=== PATIENT | female | born 1975 | race African-American/Black ===

== ENCOUNTER 2016-04-26 09:57 | Day surgery (SDC) | payer OTHER ==
[2016-04-23 14:56] VITALS: BMI 25.8
[~2016-04-26 09:57] MED LIST: LACTATED RINGERS 1,000 ML IV SCH; LIDOCAINE 1% 20 ML VIAL (10MG/ML) FOR IV START INTRADERMA PRN
[2016-04-26 10:26] VITALS: RESP 16
--- NOTE | 2016-04-26 10:36 | P.OP ---
Date of Procedure: 04/26/16 Preoperative Diagnosis: Change in bowel habits, intermittent rectal bleeding, abdominal cramps Anxiety, Depression Hypertension Postoperative Diagnosis: Normal colonoscopy Procedure(s) Performed: Colonoscopy with random biopsy Implants: NA Anesthesia: MAC (ASA 2) Surgeon: Jossie Kay Condition: stable Disposition: PACU Indications for Procedure: 40 yrs old female known patient, presents with intermittent rectal bleed, change in bowel habits with abdominal cramps and bloating. She also has pelvic pain during intercourse. Prior diagnostic laparoscopy for endometriosis and inguinal hernia repair at the same time with tubal ligation by her [employer]. She felt her stitches pop on the left side. Informed consent obtained from the patient after explaining the risks, benefits and potential complications and she elected to undergo colonoscopy with possible biopsy. Operative Findings: Normal colonoscopy Description of Procedure: The patient was brought to the endoscopy suite and placed in lateral decubitus position. IV sedation was given as per anesthesia team. Patient was on continuous vitals and pulse oximetry monitoring throughout the procedure. A timeout was performed to verify correct patient and correct procedure. Perianal examination did not show any external hemorrhoids. Digital rectal examination was performed. No masses or gross blood. A well-lubricated Olympus colonoscope was passed per rectally and was gradually advanced beyond the sigmoid colon, splenic flexure, transverse colon, hepatic flexure and cecum. The ileocecal valve was visualized. The colonoscope was gradually withdrawn inspecting all the mucosal surfaces. Bowel prep was good. No polyps, masses, AV malformations noted. No diverticulosis. Random colon biopsy taken using cold bx forceps. The scope was gradually withdrawn and retroflexed in the rectum . Grade 1 internal hemorrhoids seen. Total withdrawal time was greater than 6 minutes . Patient tolerated the procedure well and was taken to post anesthesia care unit in stable condition. Recommend repeat colonoscopy in 10 years . Final Pathologic Diagnosis COLONIC MUCOSA, RANDOM COLON (ENDOSCOPIC BIOPSY): NO SIGNIFICANT DIAGNOSTIC ALTERATIONS.
[2016-04-26] MEDS ORDERED: PROPOFOL 10 MG/ML 20 ML VIAL IV ONE (10:40)
[2016-04-26] MEDS ORDERED: LIDOCAINE 1% INJ 10MG/ML (20 ML MDV) ONE (10:40)
[2016-04-26 11:18] VITALS: PULSE 72
[2016-04-26 11:41] VITALS: BP 136/84
== END 2016-04-26 12:06 | disposition home or self-care (01) ==
LOC: ORWHC2ENDO 09:57
PROVIDERS: ATTEND Surgery
DX: K64.0 First degree hemorrhoids (principal); R19.4 Change in bowel habit; R10.9 Unspecified abdominal pain; I10 Essential (primary) hypertension; Z79.1 Long term (current) use of non-steroidal anti-inflammatories (NSAID); Z79.891 Long term (current) use of opiate analgesic; Z79.52 Long term (current) use of systemic steroids; Z79.899 Other long term (current) drug therapy; Z88.1 Allergy status to other antibiotic agents
CPT/HCPCS: 81025; 88305; 45380; J2001; J2704

== ENCOUNTER 2016-08-07 14:00 | Emergency (ER) | payer OTHER ==
[2016-08-07] MEDS ORDERED: SODIUM CHLORIDE 0.9% 500 ML IV STA (14:40)
--- NOTE | 2016-08-07 14:44 | ED ---
General Adult HPI - General Chief complaint: Back Pain/Injury Stated complaint: kidney and heart "achy" Time Seen by Provider: 08/07/16 14:27 Source: patient, RN notes reviewed, old records reviewed Mode of arrival: ambulatory Limitations: no limitations - History of Present Illness Initial comments: Chief complaint and history of present illness a 40-year-old female here with a complaint that started 1 week ago. When she had nausea vomiting last the day and a half. She developed a tension type headache that lasted for several days. Also muscle aches and pains. Pushing on her chest at that time increased discomfort as needed deep breathing. Also some low back discomfort. She also had some frequency and urgency. No dysuria. Denies fever during this time. Been out of work for several days. Denies anyone else being sick with similar symptoms 100 friends or family. - Related Data Home Medications Medication Instructions Recorded Confirmed buPROPion XL [Wellbutrin Xl] 300 mg PO DAILY 08/31/15 08/07/16 traZODone HCL [Desyrel] 100 mg PO HS 08/31/15 08/07/16 Ferrous Sulfate [Feosol] 325 mg PO DAILY 12/07/15 08/07/16 Metoprolol Tartrate 25 mg PO BID 12/07/15 08/07/16 ALPRAZolam [Xanax] 0.25 mg PO BID PRN 08/07/16 08/07/16 Ergocalciferol [Vitamin D2] 50,000 unit PO WE 08/07/16 08/07/16 Loratadine [Claritin] 10 mg PO DAILY 08/07/16 08/07/16 Previous Rx's Medication Instructions Recorded Ibuprofen [Motrin] 600 mg PO Q6HR PRN #20 tab 08/07/16 Ondansetron Odt [Zofran Odt] 4 mg PO Q8HR PRN #10 tab 08/07/16 Allergies Allergy/AdvReac Type Severity Reaction Status Date / Time vancomycin Allergy Rash/Hives Verified 08/07/16 14:45 Review of Systems ROS Statement: Those systems with pertinent positive or pertinent negative responses have been documented in the HPI. Review of systems. Currently in minimal no headache no visual acuity changes no discomfort to the chest or muscles except for the low back. Denies rashes. No nausea no vomiting. Bowel movements every other day no diarrhea. No neuro deficits. All systems are reviewed. Past medical problems significant for hypertension for which she is on metoprolol. She had a hemorrhoid which was investigated by colonoscopy. Ovarian cysts and endometriosis. Surgeries include hernia repair. Abscess I&D right groin. Tubal ligation. Uterine laparoscopic exam. And foot surgery. Family history noncontributory. ALLERGIES to vancomycin. Nonsmoker, occasional alcohol use. ROS Other: All systems not noted in ROS Statement are negative. Past Medical History Past Medical History: GI Bleed, Hypertension Additional Past Medical History / Comment(s): ovarian cyst, endometerosis, anemic, chronic bronchitis, changes in bowel habits, 2 hernias in groin History of Any Multi-Drug Resistant Organisms: None Reported Past Surgical History: Hernia Repair, Tubal Ligation Additional Past Surgical History / Comment(s): uterine lap, foot sx 2006, I&D abscess Past Anesthesia/Blood Transfusion Reactions: No Reported Reaction Past Psychological History: Anxiety, Depression, PTSD Smoking Status: Never smoker Past Alcohol Use History: None Reported Past Drug Use History: None Reported - Past Family History Father Additional Family Medical History / Comment(s): no known issues, committed suicide General Exam - General Exam Comments Initial Comments: General: The patient is awake and alert, complains of more discomfort several days ago and that she's having today. Generalized aches and pains. Afebrile. Vital signs shows temperature 98.8 pulse 87 respiratory rate 20 pulse ox 99% room air blood pressure 120/74 Eye: Pupils are equal, round and reactive to light, extra-ocular movements are intact ; there is normal conjunctiva bilaterally. No signs of icterus. Ears, nose, mouth and throat: There are moist mucous membranes and no oral lesions. Neck: The neck is supple, there is no tenderness , no anterior cervical lymphadenopathy, thyroid not enlarged. Cardiovascular: There is a regular rate and rhythm. No murmur, rub or gallop is appreciated. Respiratory: Lungs are clear to auscultation, respirations are non-labored, breath sounds are equal. No wheezes, stridor, rales, or rhonchi. Gastrointestinal: Soft, non-distended, non-tender abdomen without masses or organomegaly noted. There is no rebound or guarding present. No CVA tenderness. Bowel sounds are unremarkable. Back: Mild low back discomfort. Range of motion is near normal. Musculoskeletal: Normal ROM, no tenderness, There is no pedal edema. There is no calf tenderness or swelling. Sensation intact. Pulses equal bilaterally 2+. Generalized aches and pains. Neurological: CN II-XII intact, There are no obvious motor or sensory deficits. Coordination appears grossly intact. Speech is normal. No neuro deficits. Skin: Skin is warm and dry and no rashes or lesions are noted. Limitations: no limitations Course Vital Signs 08/07/16 14:15 Temperature 98.8 F Pulse Rate 87 Respiratory 20 Rate Blood Pressure 120/74 O2 Sat by Pulse 99 Oximetry Medical Decision Making - Medical Decision Making Medical decision making patient's white count is 4 hemoglobin 11 hematocrit 39 , urine clean no signs of infection. Potassium 4.6 with a BUN 15 creatinine 1.0G for greater than 60. C-reactive protein less than 5 Chest x-ray is done both AP and lateral view and reviewed by radiologist. His final impression is no acute cardiopulmonary process no significant change from prior. As read by Dr. berger The patient will be placed on ibuprofen 600 mg 1 every 6 hours for the next 4 days for muscle aches and pains. Told to increase her fluids. She'll be a prescription for Zofran ODT. Advised to follow-up with family physician. Off work today and tomorrow. - Lab Data Result diagrams: 08/07/16 15:10 08/07/16 15:10 Lab Results 08/07/16 08/07/16 08/07/16 Range/Units 14:10 15:10 15:10 WBC 4.5 (3.8-10.6) k/uL RBC 5.57 H (3.80-5.40) m/uL Hgb 11.3 L (11.4-16.0) gm/dL Hct 39.0 (34.0-46.0) % MCV 70.1 L (80.0-100.0) fL MCH 20.3 L (25.0-35.0) pg MCHC 29.0 L (31.0-37.0) g/dL RDW 16.2 H (11.5-15.5) % Plt Count 179 (150-450) k/uL Neutrophils % 57 % Lymphocytes % 29 % Monocytes % 6 % Eosinophils % 3 % Basophils % 1 % Neutrophils # 2.6 (1.3-7.7) k/uL Lymphocytes # 1.3 (1.0-4.8) k/uL Monocytes # 0.3 (0-1.0) k/uL Eosinophils # 0.1 (0-0.7) k/uL Basophils # 0.0 (0-0.2) k/uL Hypochromasia Marked Anisocytosis Slight Microcytosis Moderate Sodium 137 (137-145) mmol/L Potassium 4.6 (3.5-5.1) mmol/L Chloride 104 (98-107) mmol/L Carbon Dioxide 25 (22-30) mmol/L Anion Gap 8 mmol/L BUN 15 (7-17) mg/dL Creatinine 1.00 (0.52-1.04) mg/dL Est GFR (MDRD) Af Amer >60 (>60 ml/min/1.73 sqM) Est GFR (MDRD) Non-Af >60 (>60 ml/min/1.73 sqM) Glucose 86 (74-99) mg/dL Calcium 9.6 (8.4-10.2) mg/dL Total Bilirubin 0.3 (0.2-1.3) mg/dL AST 19 (14-36) U/L ALT 26 (9-52) U/L Alkaline Phosphatase 60 (38-126) U/L C-Reactive Protein <5.0 (<10.0) mg/L Total Protein 6.9 (6.3-8.2) g/dL Albumin 4.0 (3.5-5.0) g/dL Urine Color Yellow Urine Appearance Clear (Clear) Urine pH 5.5 (5.0-8.0) Ur Specific [place] 1.026 (1.001-1.035) Urine Protein Trace H (Negative) Urine Glucose (UA) Negative (Negative) Urine Ketones Negative (Negative) Urine Blood Negative (Negative) Urine Nitrite Negative (Negative) Urine Bilirubin Negative (Negative) Urine Urobilinogen <2.0 (<2.0) mg/dL Ur Leukocyte Esterase Trace H (Negative) Urine WBC 2 (0-5) /hpf Ur Squamous Epith Cells 6 H (0-4) /hpf Urine Bacteria Rare H (None) /hpf Urine Mucus Many H (None) /hpf Disposition Clinical Impression: Acute viral syndrome, Degeneration of intervertebral disc Disposition: HOME SELF-CARE Condition: Fair Instructions: Viral Syndrome (ED) Additional Instructions: Increase fluids. No milk products. Use Zofran to control nausea ibuprofen to control discomfort. Follow-up with your family physician. Prescriptions: Ibuprofen [Motrin] 600 mg PO Q6HR PRN #20 tab PRN Reason: Pain Ondansetron Odt [Zofran Odt] 4 mg PO Q8HR PRN #10 tab PRN Reason: Nausea Referrals: Slime Rizzo MD [Primary Care Provider] - 1-2 days Time of Disposition: 16:49
[2016-08-07 15:10] LABS: Appearance,Urine Clear (Clear); Bacteria,Urine Rare /hpf; Bilirubin,Urine Negative (Negative); Glucose,Urine (UA) Negative (Negative); Ketones,Urine Negative (Negative); Leukocyte Esterase,Urine Trace (Negative); Mucus,Urine Many /hpf; Nitrite,Urine Negative (Negative); PH, Urine 5.5 (5.0-8.0); Particle Count 9252; Protein,Urine Trace (Negative); Specific Gravity,Urine 1.026 (1.001-1.035); Squamous Epithelial Cell,Urine 6 /hpf (0-4); UA Billing (MACRO vs. MICRO) MICRO; Urobilinogen,Urine <2.0 mg/dL (<2.0); WBC,Urine 2 /hpf (0-5)
[2016-08-07 15:21] LABS: Anisocytosis Slight; Basophils % (A) 1 %; CH 20.5; CHCM 29.5; Eosinophils # (A) 0.1 k/uL (0-0.7); Eosinophils % (A) 3 %; HDW 2.79; HGB 11.3 gm/dL (11.4-16.0); Hypochromasia Marked; Luc # (Auto) 0.15; Luc % (Auto) 4; Lymphocytes # (A) 1.3 k/uL (1.0-4.8); Lymphocytes % (A) 29 %; MCH 20.3 pg (25.0-35.0); MCV 70.1 fL (80.0-100.0); Mean Platelet Volume 6.4; Microcytosis Moderate; Monocytes # (A) 0.3 k/uL (0-1.0); Monocytes % (A) 6 %; Neutrophils # (A) 2.6 k/uL (1.3-7.7); Neutrophils % (A) 57 %; RBC 5.57 m/uL (3.80-5.40); RDW 16.2 % (11.5-15.5); WBC 4.5 k/uL (3.8-10.6); WBC (Perox) 5.11
[2016-08-07 15:42] LABS: ALT 26 U/L (9-52); AST 19 U/L (14-36); Alkaline Phosphatase 60 U/L (38-126); Anion Gap 8 mmol/L; Blood Urea Nitrogen 15 mg/dL (7-17); C Reactive Protein <5.0 mg/L (<10.0); Calcium 9.6 mg/dL (8.4-10.2); Carbon Dioxide 25 mmol/L (22-30); Chloride 104 mmol/L (98-107); Glucose 86 mg/dL (74-99); Non-African American GFR(MDRD) >60 (>60 ml/min/1.73 sqM); Potassium 4.6 mmol/L (3.5-5.1); Sodium 137 mmol/L (137-145); Total Bilirubin 0.3 mg/dL (0.2-1.3); Total Protein 6.9 g/dL (6.3-8.2)
--- NOTE | 2016-08-07 16:35 | XR ---
EXAMINATION TYPE: XR chest 2V DATE OF EXAM: 08/07/2016 COMPARISON: Chest x-ray August 31, 2015. HISTORY: Chest pain. TECHNIQUE: Frontal and lateral views of the chest are obtained. FINDINGS: There is no focal air space opacity, pleural effusion, or pneumothorax seen. The cardiac silhouette size is within normal limits. The osseous structures are intact. IMPRESSION: No acute cardiopulmonary process. No significant change from prior.
[2016-08-07 17:05] VITALS: BP 117/81; PULSE 78; RESP 18; TEMP 98.4
== END 2016-08-07 17:05 | disposition home or self-care (01) ==
LOC: EC 14:00
DX: M51.36 Other intervertebral disc degeneration, lumbar region (principal); B34.9 Viral infection, unspecified; R11.2 Nausea with vomiting, unspecified; R07.2 Precordial pain; I10 Essential (primary) hypertension; F41.9 Anxiety disorder, unspecified; F32.9 Major depressive disorder, single episode, unspecified; F43.10 Post-traumatic stress disorder, unspecified; Z79.899 Other long term (current) drug therapy; Z88.1 Allergy status to other antibiotic agents
CPT/HCPCS: 36415; 71020; 80053; 81001; 85025; 86140; 87086; 96360; 99284

== ENCOUNTER 2017-08-22 15:26 | Emergency (ER) | payer OTHER ==
[2017-08-22] MEDS ORDERED: IBUPROFEN 600 MG TAB PO STA (18:34)
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
--- NOTE | 2017-08-22 19:38 | XR ---
EXAMINATION TYPE: XR finger LT DATE OF EXAM: 08/22/2017 COMPARISON: NONE HISTORY: Index finger pain TECHNIQUE: 3 views FINDINGS: I see no fracture nor dislocation. Joint spaces are normal. IMPRESSION: Negative left index finger exam.
[2017-08-22 21:41] VITALS: BP 116/88; PULSE 76; RESP 16; TEMP 97.9
== END 2017-08-22 21:44 | disposition home or self-care (01) ==
LOC: EC 15:26
DX: S70.12XA Contusion of left thigh, initial encounter (principal); S80.02XA Contusion of left knee, initial encounter; S40.022A Contusion of left upper arm, initial encounter; S61.211A Laceration without foreign body of left index finger without damage to nail, initial encounter; I10 Essential (primary) hypertension; F41.9 Anxiety disorder, unspecified; F32.9 Major depressive disorder, single episode, unspecified; F43.10 Post-traumatic stress disorder, unspecified; Z79.899 Other long term (current) drug therapy; Z88.1 Allergy status to other antibiotic agents; Y04.2XXA Assault by strike against or bumped into by another person, initial encounter
CPT/HCPCS: 99283

== ENCOUNTER 2018-07-19 21:56 | Emergency (ER) | payer OTHER ==
[2018-07-19 22:09] VITALS: RESP 18; TEMP 97.9
[2018-07-19] MEDS ORDERED: MORPHINE SULFATE 4 MG/ML SYRINGE IV STA ×2 (22:36→23:49)
[2018-07-19] MEDS ORDERED: DICYCLOMINE 20 MG TAB PO STA (22:37)
--- NOTE | 2018-07-19 22:48 | ED ---
Abdominal Pain HPI - General Chief Complaint: Abdominal Pain Stated Complaint: Abd Pain Time Seen by Provider: 07/19/18 22:12 Source: patient, EMS - History of Present Illness Initial Comments: This patient is a 42-year-old woman who presents with left lower quadrant and suprapubic pain. She states she believes she is severely constipated. She is not aware of the date of her last bowel movement, stating that she believes it was a couple of days before she had her procedure. She states that on 07/17, she underwent an embolization procedure for a uterine fibroid at [facility] in the [place]. She states that since that time she had been taking some hydrocodone. She is concerned that she may be having some constipation relating to the opioid use. She has also had some associated nausea. She describes pain as now constant, severe, and a crampy feeling associated with a sensation that she has to have a bowel movement. The patient states that it had started earlier in the day and was mild to moderate, becoming severe tonight. She denies any other symptoms. No fever or chills. No chest pain, dyspnea, coughing. No palpitations, lightheadedness, syncope. No leg symptoms. No change in urination. She has had just a little bit of vaginal spotting. MD Complaint: abdominal pain -: hour(s) Location: LLQ, suprapubic Radiation: none Migration to: no migration Severity: severe Quality: cramping Consistency: constant Improves With: nothing Worsens With: nothing Associated Symptoms: nausea, constipation - Related Data Home Medications Medication Instructions Recorded Confirmed buPROPion XL [Wellbutrin Xl] 300 mg PO DAILY 08/31/15 08/22/17 traZODone HCL [Desyrel] 100 mg PO HS 08/31/15 08/22/17 Ferrous Sulfate [Feosol] 325 mg PO DAILY 12/07/15 08/22/17 Metoprolol Tartrate 25 mg PO BID 12/07/15 08/22/17 ALPRAZolam [Xanax] 0.25 mg PO BID PRN 08/07/16 08/22/17 Ergocalciferol [Vitamin D2] 50,000 unit PO WE 08/07/16 08/22/17 Previous Rx's Medication Instructions Recorded Dicyclomine [Bentyl] 20 mg PO QID #15 tablet 07/19/18 Allergies Allergy/AdvReac Type Severity Reaction Status Date / Time vancomycin Allergy Rash/Hives Verified 07/19/18 22:09 Review of Systems ROS Statement: Those systems with pertinent positive or pertinent negative responses have been documented in the HPI. ROS Other: All systems not noted in ROS Statement are negative. Constitutional: Denies: fever, chills Respiratory: Denies: cough, dyspnea Cardiovascular: Denies: chest pain, palpitations, edema, syncope Gastrointestinal: Reports: as per HPI, abdominal pain, nausea, constipation. Denies: vomiting, diarrhea, melena, hematochezia Genitourinary: Reports: abnormal menses (Spotting). Denies: dysuria, frequency, hematuria, discharge Skin: Denies: rash Neurological: Denies: headache, weakness Past Medical History Past Medical History: GI Bleed, Hypertension Additional Past Medical History / Comment(s): ovarian cyst, endometerosis, anemic, chronic bronchitis, changes in bowel habits, 2 hernias in groin History of Any Multi-Drug Resistant Organisms: None Reported Past Surgical History: Hernia Repair, Tubal Ligation Additional Past Surgical History / Comment(s): uterine lap, foot sx 2006, I&D abscess TO RT GROIN AREA Past Anesthesia/Blood Transfusion Reactions: No Reported Reaction Past Psychological History: Anxiety, Depression, PTSD Smoking Status: Never smoker Past Alcohol Use History: None Reported Past Drug Use History: None Reported - Past Family History Father Additional Family Medical History / Comment(s): no known issues, committed suicide General Exam General appearance: alert, in no apparent distress Head exam: Present: atraumatic, normocephalic Eye exam: Present: normal appearance. Absent: scleral icterus, conjunctival in jection ENT exam: Present: normal oropharynx Respiratory exam: Present: normal lung sounds bilaterally. Absent: respiratory distress, wheezes, rales, rhonchi, stridor Cardiovascular Exam: Present: regular rate, normal rhythm, normal heart sounds. Absent: systolic murmur, diastolic murmur, rubs, gallop GI/Abdominal exam: Present: soft, normal bowel sounds. Absent: distended, tenderness, guarding, rebound, rigid, mass, pulsatile mass, hernia Rectal exam: Present: normal inspection, normal rectal tone, other (The uterus feels mildly enlarged through the rectal wall and there is tenderness. ROWAN Vidal present.). Absent: fecal impaction, hemorrhoids Extremities exam: Present: normal inspection, normal capillary refill. Absent: pedal edema, calf tenderness Back exam: Present: normal inspection. Absent: CVA tenderness (R), CVA tenderness (L) Neurological exam: Present: alert Skin exam: Present: warm, dry, intact, normal color. Absent: rash Course Vital Signs 07/19/18 22:04 Temperature 97.9 F Pulse Rate 92 Respiratory 18 Rate Blood Pressure 120/80 O2 Sat by Pulse 96 Oximetry Medical Decision Making - Lab Data Result diagrams: 07/19/18 22:54 07/19/18 22:54 Lab Results 07/19/18 07/19/18 Range/Units 22:54 22:54 WBC 14.1 H (3.8-10.6) k/uL RBC 5.91 H (3.80-5.40) m/uL Hgb 11.8 (11.4-16.0) gm/dL Hct 39.7 (34.0-46.0) % MCV 67.1 L (80.0-100.0) fL MCH 20.0 L (25.0-35.0) pg MCHC 29.8 L (31.0-37.0) g/dL RDW 16.8 H (11.5-15.5) % Plt Count 253 (150-450) k/uL Neutrophils % 85 % Lymphocytes % 6 % Monocytes % 7 % Eosinophils % 1 % Basophils % 0 % Neutrophils # 11.9 H (1.3-7.7) k/uL Lymphocytes # 0.9 L (1.0-4.8) k/uL Monocytes # 0.9 (0-1.0) k/uL Eosinophils # 0.2 (0-0.7) k/uL Basophils # 0.0 (0-0.2) k/uL Hypochromasia Marked Anisocytosis Slight Microcytosis Marked Sodium 132 L (137-145) mmol/L Potassium 3.6 (3.5-5.1) mmol/L Chloride 93 L (98-107) mmol/L Carbon Dioxide 29 (22-30) mmol/L Anion Gap 10 mmol/L BUN 11 (7-17) mg/dL Creatinine 1.04 (0.52-1.04) mg/dL Est GFR (CKD-EPI)AfAm 76 (>60 ml/min/1.73 sqM) Est GFR (CKD-EPI)NonAf 66 (>60 ml/min/1.73 sqM) Glucose 100 H (74-99) mg/dL Calcium 10.1 (8.4-10.2) mg/dL Total Bilirubin 0.9 (0.2-1.3) mg/dL AST 27 (14-36) U/L ALT 14 (9-52) U/L Alkaline Phosphatase 73 (38-126) U/L Total Protein 8.2 (6.3-8.2) g/dL Albumin 4.8 (3.5-5.0) g/dL Amylase <30 L (30-110) U/L Lipase 237 (23-300) U/L Disposition Clinical Impression: Abdominal pain Disposition: HOME SELF-CARE Condition: Fair Instructions (If sedation given, give patient instructions): Abdominal Pain (ED) Prescriptions: Dicyclomine [Bentyl] 20 mg PO QID #15 tablet Is patient prescribed a controlled substance at d/c from ED?: No Referrals: Slime Rizzo MD [Primary Care Provider] - 1-2 days
--- NOTE | 2018-07-19 23:19 | XR ---
EXAM: XR Abdomen, 1 View CLINICAL HISTORY: ITS.REASON XR Reason: abdominal pain TECHNIQUE: Frontal supine view of the abdomen/pelvis. COMPARISON: No relevant prior studies available. FINDINGS: Gastrointestinal tract: Unremarkable. No dilation. Bones/joints: No acute fracture. No dislocation. IMPRESSION: No acute findings.
[2018-07-19 23:22] LABS: Anisocytosis Slight; Basophils % (A) 0 %; Eosinophils # (A) 0.2 k/uL (0-0.7); Eosinophils % (A) 1 %; HCT 39.7 % (34.0-46.0); HGB 11.8 gm/dL (11.4-16.0); Hypochromasia Marked; Lymphocytes # (A) 0.9 k/uL (1.0-4.8); Lymphocytes % (A) 6 %; MCHC 29.8 g/dL (31.0-37.0); MCV 67.1 fL (80.0-100.0); Mean Platelet Volume 6.8; Microcytosis Marked; Monocytes # (A) 0.9 k/uL (0-1.0); Monocytes % (A) 7 %; Neutrophils # (A) 11.9 k/uL (1.3-7.7); Neutrophils % (A) 85 %; Platelet Count 253 k/uL (150-450); RBC 5.91 m/uL (3.80-5.40); RDW 16.8 % (11.5-15.5); WBC 14.1 k/uL (3.8-10.6)
[2018-07-19 23:23] LABS: ALT 14 U/L (9-52); AST 27 U/L (14-36); Albumin 4.8 g/dL (3.5-5.0); Alkaline Phosphatase 73 U/L (38-126); Amylase <30 U/L (30-110); Anion Gap 10 mmol/L; Blood Urea Nitrogen 11 mg/dL (7-17); Calcium 10.1 mg/dL (8.4-10.2); Carbon Dioxide 29 mmol/L (22-30); Chloride 93 mmol/L (98-107); Glucose 100 mg/dL (74-99); Lipase 237 U/L (23-300); Sodium 132 mmol/L (137-145); Total Bilirubin 0.9 mg/dL (0.2-1.3); Total Protein 8.2 g/dL (6.3-8.2)
[2018-07-19] MEDS ORDERED: MAGNESIUM CITRATE 296 ML BOTTLE PO ONE (23:49)
[2018-07-19] MEDS ORDERED: KETOROLAC 30 MG/ML 1 ML VIAL IVP STA (23:49)
[2018-07-19 23:50] LABS: Potassium 3.6 mmol/L (3.5-5.1)
[2018-07-20 00:22] VITALS: BP 137/87; PULSE 79
== END 2018-07-20 00:16 | disposition home or self-care (01) ==
LOC: EC 21:56
DX: R10.32 Left lower quadrant pain (principal); N85.2 Hypertrophy of uterus; R11.0 Nausea; I10 Essential (primary) hypertension; F41.9 Anxiety disorder, unspecified; F32.9 Major depressive disorder, single episode, unspecified; Z79.899 Other long term (current) drug therapy; Z88.1 Allergy status to other antibiotic agents; Z87.42 Personal history of other diseases of the female genital tract; Z98.51 Tubal ligation status
CPT/HCPCS: 36415; 80053; 82150; 83690; 85025; 74018; 99284; 96374; 96375; 96376; J2270 ×2; J1885